=== PATIENT | female | born 1950 | race Caucasian/White ===

== ENCOUNTER 2016-11-25 19:39 | Emergency (ER) | payer MEDICARE, BC ==
--- NOTE | ~2016-11-25 | ER ---
PATIENT'S NAME: ELADIA ZAPATA [facility] [place] AGE: 66 Y [address] ROOM: [place] [address] LOCATION: ED ADMIT DATE: 11/25/2016 ER/Outpatient Report DISCHARGE DATE: 11/25/2016 FAMILY PHYSICIAN: Jasvir Pan MD ATTENDING PHYSICIAN: Jean Olivas Admission date and time documented on the medical record. I saw the patient at 1955 hours. CHIEF COMPLAINT: Shortness of breath, chest pain, swollen tongue, and congestion. HISTORY OF PRESENT ILLNESS: This is a 66-year-old female who was mowing the lawn this afternoon, came in around 1330 hours shortly thereafter had developed nasal congestion, shortness of breath, and tongue swelling. Also had intermittent sharp chest pain. The pain is in the mid chest lasting a minute or two. Did have a negative stress test of her heart about a year ago. No known coronary artery disease. She does have some allergy problem. She has had conjunctivitis and she is on TobraDex for this. She thought maybe she had a reaction to that. She used TobraDex eyedrops twice yesterday and twice today. Denies any fever, chills, or sweats. No recent cough, colds, or flus. No fall or trauma. No lightheadedness, dizziness, syncope, or near syncope. No headache, eyes, ears, nose, throat, neck, or spine pain. No abdominal pain, nausea, vomiting, or diarrhea. No urinary symptoms. No joint or muscle swelling, redness, or pain. No skin eruptions or rash. Does have some headaches; otherwise, no neuro problems, no endocrine problems, no psychiatric problems. HOME MEDICATIONS: See attached medication list. ALLERGIES: SULFA. SOCIAL HISTORY: Nonsmoker, nondrinker. SIGNIFICANT PAST MEDICAL HISTORY: Headaches, hypertension. OPERATIONS: Colonoscopy, esophagogastroduodenoscopy, bladder sling placement, hysterectomy, tonsillectomy, and appendectomy. REVIEW OF SYSTEMS: PATIENT'S NAME: ELADIA ZAPATA [facility] [place] AGE: 66 Y [address] ROOM: [place] [address] LOCATION: ED ADMIT DATE: 11/25/2016 ER/Outpatient Report DISCHARGE DATE: 11/25/2016 FAMILY PHYSICIAN: Jasvir Pan MD ATTENDING PHYSICIAN: Jean Olivas All systems are reviewed by me are negative with the exception of those discussed in the history of present illness. PHYSICAL EXAMINATION: VITAL SIGNS: Temperature 98.1, pulse 83, respirations 18, blood pressure 141/79, and O2 saturation on room air is 99%. HEENT: Head: Normocephalic. Eyes: A little bit of mild conjunctivitis bilaterally. No periorbital swelling. Ears: Clear TMs bilaterally. Nose: Congested. Throat: Clear. Mucous membranes moist. Tongue is normal. No posterior pharyngeal edema. NECK: No nuchal rigidity. No thyromegaly or cervical adenopathy. Range of motion full. No tenderness. SPINE: Negative. LUNGS: Clear. Good air flow. No rales, rhonchi, or wheezes. HEART: Regular. Pulses are palpable. No chest wall or ribcage pain to palpation. ABDOMEN: Soft, nondistended, nontender. Active bowel tones. No organomegaly or abnormal mass palpable. No CVA tenderness. EXTREMITIES: Without peripheral edema, cyanosis, or deformity. NEUROVASCULAR: Intact. SKIN: Clear. No skin eruptions or rash. DIAGNOSTIC DATA: EKG showed sinus rhythm. No acute ST elevation, ischemic change, or arrhythmia. Chest x-ray showed no acute infiltrate or changes. We will review x-ray with the radiologist. LABORATORY DATA: White count 6000, 48 segs, 36 lymphs, 13 monos, 2 eos, 1 baso. Hemoglobin is 13.2 with hematocrit of 40.4, and platelet count [id number]. PTT was 24, pro time is 10 with an INR 0.95. CMS was normal except an elevated BUN of 26, low GFR at 58, magnesium normal at 2.5, CPK was normal at 113, point of care cardiac enzymes were normal. ProBNP was 294. D-dimer was normal at 0.4. EMERGENCY ROOM COURSE: I did give the patient IV Solu-Medrol 125 mg and IV Benadryl 25 mg in the emergency room. IMPRESSION: Nasal congestion with some shortness of breath and tongue swelling, most likely environmental allergic reaction. Doubt that this is medicine related. PLAN: The patient discharged home. Observation. Activity as tolerated. Fluids and diet as tolerated. Continue present home medications and care. Medrol PATIENT'S NAME: ELADIA ZAPATA [facility] [place] AGE: 66 Y [address] ROOM: [place] [address] LOCATION: [facility] ADMIT DATE: 11/25/2016 ER/Outpatient Report DISCHARGE DATE: 11/25/2016 FAMILY PHYSICIAN: Jasvir Pan MD ATTENDING PHYSICIAN: Jean Olivas Dosepak, take as directed. Zyrtec 10 mg once a day #10. Follow up with personal physician in 5-6 days or sooner if needed. Discussion ensued with the patient concerning my findings and recommendations, she understands. MD JOSE WILDE/modl /[id number] d: 11/26/16 0113 t: 11/26/16 1810, OUTPATIENT REPORT
[2016-11-25 20:08] LABS: BASOPHIL % 0.5 %; EOSINOPHIL # 0.1 K/uL (0.0-0.5); EOSINOPHIL % 2.3 %; HEMATOCRIT 40.4 % (33.0-46.0); HEMOGLOBIN 13.2 g/dL (10.0-15.0); IMMATURE GRANULOCYTE % 0.3 %; LYMPHOCYTE # 2.2 K/uL (0.8-4.0); MCH 31.3 pg (27.0-34.0); MCHC 32.7 gm/dL (32.0-36.5); MCV 95.7 fl (83.0-98.0); MONOCYTE # 0.8 K/uL (0.0-1.0); MONOCYTE % 13.3 %; NEUTROPHIL # (ANC) 2.9 K/uL (1.8-7.8); NEUTROPHIL % 47.6 %; NRBC % 0 /100WBC (0-0.00); PLATELET COUNT 209 K/uL (150-450); RBC 4.22 M/uL (3.50-5.50); RDW-CV 13.5 % (11.9-14.6)
[2016-11-25 20:18] LABS: INR - (THERAPEUTIC) 0.95 (0.92-1.07); PTT 24 SECONDS (25-32)
[2016-11-25 20:27] LABS: ALBUMIN 3.7 gm/dL (3.5-5.0); ALK PHOS 68 IU/L (33-138); ALT 22 IU/L (12-78); ANION GAP 11.1 (10.0-19.0); AST 27 IU/L (10-40); BLOOD UREA NITROGEN 26 mg/dL (6-24); CALCIUM 8.7 mg/dL (8.5-10.5); CHLORIDE 108 mMol/L (96-110); CO2 27 mMol/L (22-32); CPK 113 IU/L (21-215); MAGNESIUM 2.5 mg/dL (1.8-2.6); POTASSIUM 4.1 mMol/L (3.7-5.1); SODIUM 142 mMol/L (135-145); TOTAL BILIRUBIN 0.3 mg/dL (0.0-1.5); TOTAL PROTEIN 7.3 g/dL (6.0-8.4)
== END 2016-11-25 21:23 | disposition disaster alternative care site (69) ==
LOC: GMED 19:39
PROVIDERS: Emergency Medicine
DX: R06.02 Shortness of breath (principal); R09.81 Nasal congestion; K14.8 Other diseases of tongue; I10 Essential (primary) hypertension; Z90.89 Acquired absence of other organs; Z88.2 Allergy status to sulfonamides; Z88.1 Allergy status to other antibiotic agents; Z79.899 Other long term (current) drug therapy
CPT/HCPCS: J1200; J2930